=== PATIENT | female | born 1940 | race Caucasian/White ===

== ENCOUNTER 2016-08-21 09:14 | Emergency (ER) | payer MEDICARE ==
[2016-08-21 10:10] LABS: BASOPHILS % 0.5 (0.0-1.5); MEAN CORPUSCULAR HEMOGLOBIN 26.6 pg (28.0-34.0); MEAN CORPUSCULAR VOLUME 86.6 fl (80.0-100.0); MONOCYTES % 4.6 % (0.0-11.0); NEUTROPHILS # 5.8 # k/uL (1.4-7.7)
[2016-08-21 10:24] LABS: eGFR (African) > 60; eGFR (Non-African) > 60
--- NOTE | 2016-08-21 11:07 | Diagnostic Imaging Report ---
[facility] [address] [facility].[address] [address] Report Submission Date: Aug 21, 2016 10:23:04 AM CDT Patient Study Name: FIDEL PALMER Date: Aug 21, 2016 9:52:28 AM CDT Modality Type: CR Gender: F Description: CHEST : 40 Institution: [facility] Physician DANIEL HIGHTOWER - ER EXAMINATION: Chest, one view. HISTORY: Weakness towards of breath. FINDINGS: The heart is enlarged. There is mild pulmonary vascular congestion present. There is no pleural effusion or pneumothorax identified. 3 radiopaque density superimposed mid chest. There is degenerate changes in the shoulders. IMPRESSION: 1. Cardiomegaly with mild pulmonary vascular congestion present. Electronically signed on Aug 21, 2016 10:23:04 AM CDT by: Gilbert FERRARI
[2016-08-21 11:08] LABS: ABG BASE EXCESS 5.9 (-2 - +2); ABG PH 7.43 (7.35-7.45)
[2016-08-21] MEDS: 0.9 % SODIUM CHLORIDE 500 ML IV ONE (12:15)
--- NOTE | 2016-08-21 14:46 | ED Physician Documentation ---
General Adult - HISTORIAN Historian: patient, spouse, child - HPI Chief Complaint: General Adult Additional Information: progressive weakness and falls-slid out of bed fs bs =190 no breakfast. pt very hard of hearing rambles w/answers. This am-husb unable to get her up. Pt appears alert and cooperative but no longer able to be at home w/limited help from . Family is present and attentive but realize there inability to continue w/apparent ability. Onset: other (progressive now getting unable to care for her. diet constists of tv dinners and xs bread) Timing: worse Severity: moderate - ROS CONST: weakness CVS/RESP: shortness of breath GI/: none (ddiet poior bs probably long ltime very poor control) MS/SKIN/LYMPH: leg pain, back pain, ankle swelling (marked exostoses on legs and feet) - PAST HX Past History: hypertension, other (dm obesity hearing loss htn) Other History: diabetes Type 1 Surgeries/Procedures: , cholecystectomy, hysterectomy Allergies/Adverse Reactions: Allergies Allergy/AdvReac Type Severity Reaction Status Date / Time No Known Drug Allergies Allergy Unverified 12/06/15 10:32 soybean Allergy Verified 08/21/16 09:24 Home Medications: Ambulatory Orders Medication Instructions Recorded Amlodipine Besylate/Benazepril 1 tab PO BID 08/21/16 [Amlodipine-Benazepril 10-20 mg] Lovastatin [Lovastatin] 40 mg PO DAILY 08/21/16 gliPIZIDE [Glucotrol] [place] [id number] 08/21/16 - SOCIAL HX Smoking History: non-smoker Alcohol Use: none Drug Use: none - FAMILY HX Family History: No - REVIEWED ASSESSMENTS Nursing Assessment Reviewed: Yes Vitals Reviewed: Yes ED Results Lab/Radiology - Radiology Radiology Impressions: cxr reveals cardiomegally no apparent other acute condition General Adult Physical Exam - PHYSICAL EXAM GENERAL APPEARANCE: moderate distress EENT: eye inspection normal, no signs of dehydration, hearing deficit NECK: thyroid normal. No: lymphadenopathy RESPIRATORY: no resp distress, wheezes, rales. No: breath sounds normal CVS: reg rate & rhythm, heart sounds normal ABDOMEN: soft, tenderness (genl-quite obese protuberant), distended. No: rebound SKIN: warm/dry, normal color. No: cyanosis, diaphoresis, jaundice EXTREMITIES: edema, other (marked exostoses callouses poor hygiene feet legs). No: non-tender, normal range of motion NEURO: oriented X3 Discharge Clincal Impression: porogressive inination and debilitation, progressive weakness w/frequent falls , obesity-malnutrition, hearing loss Referrals: Castillo Robert MD [Primary Care Provider] - 2 Days Home Medications: Ambulatory Orders Amlodipine Besylate/Benazepril [Amlodipine-Benazepril 10-20 mg] 1 tab PO BID 05/05 Lovastatin [Lovastatin] 40 mg PO DAILY 08/21/16 gliPIZIDE [Glucotrol] [place] [id number] 08/21/16 Comments: correction arrangements have been made Condition: Fair Disposition: 04 XFER RESIDENTIAL Decision to Admit: NO Decision Time: 14:46
[2016-08-21 14:52] VITALS: BP 139/55
[2016-08-22 05:40] LABS: APPEARANCE,URINE CLOUDY (CLEAR); COLOR,URINE YELLOW (YELLOW); OCCULT BLOOD,URINE 2+ (NEGATIVE); UROBILINOGEN URINE 0.2 Eu (0.2-1.0)
== END 2016-08-21 14:50 ==
LOC: ED 09:14
DX: R53.81 Other malaise (principal); R53.1 Weakness; E66.9 Obesity, unspecified; H91.90 Unspecified hearing loss, unspecified ear
CPT/HCPCS: 36600; 71010; 80053; 82150; 82803; 83036; 85025; 85610; 93005; J7060; 81002; 96360; 99284; S1016